=== PATIENT | male | born 1950 | race Caucasian/White ===

== ENCOUNTER 2018-04-13 00:09 | Emergency (ER) | payer MEDICARE, OTHER ==
[~2018-04-13] VITALS: Ht 170.2 cm; Wt 71.0 kg
[2018-04-13 00:12] VITALS: BP 144/69
--- NOTE | 2018-04-13 00:55 | NUR ---
TASK RN: TECH AT BEDSIDE FOR REMEDIOS
--- NOTE | 2018-04-13 02:20 | NUR ---
PT D/C WITH D/C SUMMARY. PT HAND RESPLINTED. PT DENIES ANY OTHER NEEDS PERTAINING TO THIS VISIT AT THIS TIME. T AMBULATES TO REGISTRATION DESK WITH STEADY GAIT FOR D/C HOME.
== END 2018-04-13 02:22 | disposition home or self-care (01) ==
LOC: ED 00:44
DX: M25.532 Pain in left wrist (principal); G20 Parkinson's disease
CPT/HCPCS: 29125; 99283